=== PATIENT | male | born 1940 | race Caucasian/White ===

== ENCOUNTER 2017-04-04 14:59 | Emergency (ER) | payer OTHER | END 2017-04-04 16:10 | disposition home or self-care (01) | LOC: CED 14:59 → CFTX 14:59 | DX: S80.812A Abrasion, left lower leg, initial encounter (principal); Z88.0 Allergy status to penicillin; Z23 Encounter for immunization; X58.XXXA Exposure to other specified factors, initial encounter; Y92.009 Unspecified place in unspecified non-institutional (private) residence as the place of occurrence of the external cause | CPT/HCPCS: 90471; 90715; 99283 ==